=== PATIENT | female | born 1960 | race Caucasian/White ===

== ENCOUNTER 2017-03-29 15:53 | Inpatient (IN) | payer OTHER ==
--- NOTE | 2017-03-29 17:29 | ED.PDOC ---
General ED Provider: Dr. ROSALIE GRANT Chief Complaint: Dizziness Stated Complaint: DIZZINESS Time Seen by Physician: 16:00 Mode of Arrival: Ambulance Information Source: Patient, Family Exam Limitations: No limitations Primary Care Provider: AUGUSTINA SCHMID Nursing and Triage Documentation Reviewed and Agree: Yes Reviewed sepsis parameters & appropriate labs ordered?: Yes System Inflammatory Response Syndrome: Not Applicable Sepsis Protocol: For patient's 13 years and over: Temp is 96.8 and below OR 101 and greater Pulse >90 BPM Resp >20/minute Acutely Altered Mental Status Are patient's symptoms suggestive of a new infection, such as: -Pneumonia -Skin, Soft Tissue -Endocarditis -UTI -Bone, Joint Infection -Implantable Device -Acute Abdominal Infection -Wound Infection -Meningitis -Blood Stream Catheter Infection -Unknown System Inflammatory Response Syndrome: Not Applicable Neurological Complaint Exam - Dizziness Complaint/Exam Last Known Well: 1 DAY AGO Onset: Gradual Duration: 1 DAY Symptoms Are: Resolved Timing: Intermittent Episodes Lasting: Minutes Initial Severity: Mild Current Severity: None Character: Reports: Lightheaded, Dizzy Aggravating: Reports: None Alleviating: Reports: Rest Associated Signs and Symptoms: Denies: Nausea, Vomiting, Diaphoresis, Tinnitus, Chest pain, Short of air, Palpitations, Unsteady gait, GI blood loss, Visual changes, Decreased oral intake, Change in medication, Change in diet, OTC meds, Loss of balance Related History: Similar episode Cardiac Risk Factors: Reports: None CVA Risk Factors: Reports: None Related Surgical History: Reports: None JVD Present: No Carotid Bruit Present: No Glascow Coma Scale (see protocol): 15 Nystagmus Present: Yes Gag Reflex Present: No Meningeal Signs Positive: No Focal Weakness: Present: None Focal Sensory Loss: Present: None Gait: Normal Babinski Sign: Negative Right, Negative Left Differential Diagnoses: Dysrhythmia, Hyperventilation, Hypovolemia, Medication reaction, Metabolic abnormalities, Vasovagal reaction Quality Indicators for Cardiac Chest Pain: EKG in 10min. Quality Indicators for AMI: EKG in 10min. Quality Indicator For Non-Traumatic Chest Pain/Syncope: EKG Performed Review of Systems - Review Of Systems Constitutional: Reports: Malaise Eyes: Reports: No symptoms Ears, Nose, Mouth, Throat: Reports: No symptoms Respiratory: Reports: Cough Cardiac: Reports: No symptoms GI: Reports: No symptoms : Reports: No symptoms Musculoskeletal: Reports: No symptoms Skin: Reports: No symptoms Neurological: Reports: No symptoms Endocrine: Reports: No symptoms Hematologic/Lymphatic: Reports: No symptoms All Other Systems: Reviewed and Negative Past Medical History - Past Medical History Previously Healthy: Yes Endocrine: Reports: None Cardiovascular: Reports: None Respiratory: Reports: None Hematological: Reports: None Gastrointestinal: Reports: None Genitourinary: Reports: None Neuro/Psych: Reports: None Musculoskeletal: Reports: None Cancer: Reports: None Last Menstrual Period: n/a - Surgical History General Surgical History: Reports: None - Family History Family History: Reports: None - Social History Smoking Status: Never smoker Hx Substance Use: No Alcohol Screening: None Physical Exam - Physical Exam Appearance: Well-appearing, No pain distress, Well-nourished Eyes: SRINIVASA, EOMI, Conjunctiva clear ENT: Ears normal, Nose normal, Oropharynx normal Respiratory: Airway patent, Breath sounds clear, Breath sounds equal, Respirations nonlabored Cardiovascular: RRR, Pulses normal, No rub, No murmur GI/: Soft, Nontender, No masses, Bowel sounds normal, No Organomegaly Musculoskeletal: Normal strength, ROM intact, No edema, No calf tenderness Skin: Warm, Dry, Normal color Neurological: Sensation intact, Motor intact, Reflexes intact, Cranial nerves intact, Alert, Oriented Psychiatric: Affect appropriate, Mood appropriate Interpretation - Radiology Interpretation Radiology Interpretation By: ED Physician Radiology Results: Negative Exam Interpreted: CXR Critical Care Note - Critical Care Note Total Time (mins): 0 Course - Course Hematology/Chemistry: 03/29/17 16:51 Orders, Labs, Meds: Lab Review 03/29/17 03/29/17 16:50 16:51 WBC 9.05 RBC 4.53 Hgb 12.8 Hct 39.4 MCV 87.0 MCH 28.3 MCHC 32.5 RDW Coeff of Devante 13.9 Plt Count 329 Immature Gran % (Auto) 0.1 Neut % (Auto) 79.7 Lymph % (Auto) 12.3 [place] % (Auto) 7.2 Eos % (Auto) 0.3 Baso % (Auto) 0.4 Immature Gran # (Auto) 0.0 Neut # 7.2 H Lymph # 1.1 [place] # 0.7 Eos # 0.0 Baso # 0.0 Influenza A (Rapid) Negative by naat Influenza B (Rapid) Negative by naat Orders Category Date Time Status EKG-(ED ONLY) Stat CARDIO 03/29/17 16:41 Ordered CBC W/ AUTO DIFF Stat LAB 03/29/17 16:51 Completed COMPREHENSIVE METABOLIC PANEL Stat LAB 03/29/17 16:51 Received CREATINE KINASE Stat LAB 03/29/17 16:51 Received FLU A/B MOLECULAR Stat LAB 03/29/17 16:50 Completed MOLECULAR GROUP A STREP Stat LAB 03/29/17 16:50 Completed TROPONIN I Stat LAB 03/29/17 16:51 Received CHEST, 2 VIEWS PA & LAT Stat RADS 03/29/17 16:40 Taken Vital Signs: Temp Pulse Resp BP Pulse Ox 03/29/17 15:54 97.4 F L 97 H 20 164/97 H 98 Departure - Departure Time of Disposition: 18:30 Disposition: HOME SELF-CARE Discharge Problem: Dizziness Instructions: Vertigo (ED), Lightheadedness (ED), Dizziness (ED) Condition: Good Pt referred to PMD for follow-up: Yes IPMP verified?: No Additional Instructions: Please call your Family Physician as soon as possible to schedule a follow-up appointment. Allergies/Adverse Reactions: Allergies No Known Allergies Allergy (Unverified 03/29/17 16:00) Home Medications: Ambulatory Orders 1 [No Reported Medications] 03/29/17 Disposition Discussed With: Patient
[2017-03-29] MEDS ORDERED: SODIUM CHLORIDE 500 ML IV STA (18:08)
[2017-03-29 20:52] VITALS: BMI 24.4
[2017-03-29] MEDS: SODIUM CHLORIDE 1,000 ML IV SCH (20:59)
--- NOTE | 2017-03-30 04:24 | DI ---
EXAM: Chest, two views, 03/29/2017 HISTORY: Cough COMPARISON: 09/09/2011 FINDINGS / IMPRESSION: Cardiomediastinal countours appear stable. There is no focal pulmonary conso lidation. No pleural effusion or pneumothorax. No acute cardiopulmonary process.
[2017-03-30] MEDS: SODIUM CHLORIDE 1,000 ML IV SCH (17:51)
[2017-03-31 10:49] VITALS: TEMP 97.9
--- NOTE | 2017-03-31 12:42 | MRI ---
EXAM: MRI brain without IV contrast. DATE: 31 March 2017. HISTORY: Dizziness. TECHNIQUE: Sagittal T1W, axial T2W, axial FLAIR, axial T1W, axial DWI, and coronal T2W GRE sequences of the brain were obtained using 1.2 Kirsten magnet. No IV contrast. COMPARISON: CT head 11 October 2008. FINDINGS: The ventricles, cisterns, and subarachnoid spaces are normal in size and configuration for patient's age. No midline shift, mass effect or abnormal extra-axial fluid collection is apparent. No acute infarct, hemorrhage or neoplasm is identified. Minimal T2W/FLAIR hyperintensity is reveale d in the white matter abutting the anterior horn of each lateral ventricle. Small number of 2-5 mm, T2W/FLAIR bright foci are scattered in the subcortical white matter bilaterally. The [place] - white mat ter differentiation is normal. Several 2-4 mm foci of T2W GRE black signal within each globus pallid us appear benign. The 7th/8th cranial nerve complexes, cerebellopontine angles, brainstem, and visib le cervical spinal cord are normal. The cerebellar tonsils extend to the inferior margin the foramen magnum vs 1 - 1.5 mm below. The pituitary gland is normal in size and signal. Corpus callosum is n ormal in size and configuration. Flow voids are present in the major intracranial arteries and in th e dural venous sinuses. No aneurysm, AVM or dural venous sinus thrombosis is apparent. No orbit abn ormality is identified. The mastoid air cells are unremarkable. There is mild mucosal thickening at the right maxillary sinus floor. Frontal sinuses are hypoplastic. No neck mass or lymphadenopathy is detected. No calvarial neoplasm or acute fracture is evident. IMPRESSIONS: 1. No acute infarct, hemorrhage, neoplasm or hydrocephalus. 2. Minor, benign bilateral basal ganglia mineral deposition. 3. Minor low-lying cerebellar tonsils. No Chiari 1 malformation. 4. Minor/mild cerebral leukomalacia - likely small vessel disease. 5. Minor right maxillary sinus mucosal disease.
--- NOTE | 2017-03-31 13:28 | US ---
EXAM: Bilateral carotid artery Doppler History: Dizziness. Comparison: Brain MRI 03/31/2017 Technique: Multiple sonographic images through the bilateral internal carotid arteries were obtained . Color duplex Doppler was used to interrogate vascular flow. Findings: The right ICA peak systolic velocity is within normal limits measuring 0.8 meters per second. The rig ht ICA/cca PSV ratio is normal at 1.0. The right vertebral artery is patent and demonstrates antegra de flow. Penny scale images demonstrate mild to moderate plaque buildup within the right carotid bulb and proximal right internal carotid artery. The left ICA peak systolic velocity is within normal limits measuring 0.7 meters per second. The lef t ICA/cca PSV ratio is normal at 1.1. The left vertebral artery is patent and demonstrates antegrade flow. Penny scale images demonstrate mild to moderate plaque buildup within the left carotid bulb an d proximal left internal carotid artery Impression: No significant hemodynamic stenosis of the bilateral internal carotid arteries.
[2017-03-31 15:01] VITALS: BP 124/82
--- NOTE | 2017-06-15 09:37 | SSS ---
PRINCIPAL DIAGNOSIS: 1. Vertigo DISCUSSION: This is a 56 year old lady with a history of mental retardation who was brought to the emergency department for dizziness. She had this sensation of feeling light headed and dizzy over the past 24 hours. She could not stand without assistance. She was evaluated in the emergency department by Dr. Vasquez, he diagnosed Vertigo and light headedness however cause of the severeness of this he felt that she needed to be admitted therefore she was admitted to my services for observation. PAST MEDICAL HISTORY: MEDICATIONS: None ALLERGIES: No known allergies PAST MEDICAL HISTORY: History of mental retardation. Surgical history is unremarkable SOCIAL HISTORY: No history of alcohol, tobacco or illicit drug use. FAMILY HISTORY: Reviewed and thought not to be pertinent to discussion. REVIEW OF SYSTEMS: No headaches, visual changes, tinnitus, hemoptysis, blood in the stool, urinary symptoms or seizures. Vertigo. PHYSICAL EXAMINATION: VITAL SIGNS: Temperature 97.4, pulse97 , respirations 20 and blood pressure 164 /97 and pulse oximetry is 98% GENERAL: This is a pleasant 56 year old lady appears her stated age. She is alert and oriented times three. HEENT: Pupils are round. NECK: Supple. CHEST: Clear. CARDIOVASCULAR: Regular rate and rhythm. ABDOMEN: Soft, nontender. EXTREMITIES: Distal extremities without cyanosis or edema. CLINICAL COURSE: Her vertigo was evaluated with MRI of the head as well as Carotid scan which was unremarkable. EKG was was unremarkable. She did have evidence of Pyuria. We going to go ahead and start on antibiotics pending results of cultures. At time of discharge she felt good enough to stand and to walk without assistance. At this point we felt the patient was stable for discharge. This patient was discharged with prescription of Bactrim. I am going to see her in the office and closed followup pending the results of the urine culture. JOHANNE
== END 2017-03-31 17:30 | disposition home or self-care (01) | DRG 149 ==
LOC: ED 15:53 → SCU 18:26
PROVIDERS: ADMIT Family Medicine; ATTEND Family Medicine
DX: R42 Dizziness and giddiness (principal); N39.0 Urinary tract infection, site not specified; R53.81 Other malaise; F79 Unspecified intellectual disabilities
CPT/HCPCS: 36415; 80053; 81001; 82550; 82553; 84484; 85025; 87086; 87502; 87651; 93005; 93010; 96360; 99284